=== PATIENT | female | born 1975 | race Asian ===

== ENCOUNTER 2020-04-03 15:37 | Emergency (ER) | payer OTHER ==
[~2020-04-03] VITALS: Ht 157.5 cm; Wt 68.0 kg
[~2020-04-03 15:37] MED LIST: BISA-42 PO; CEFT1FRO2 IV; DOCU-109 PO; Hydrocodone/Acetaminophen PO; NAPR-514 PO; OXYC1TAB15 PO; POTA20TA4 PO
[2020-04-03] MEDS ORDERED: KETOROLAC 15 MG/ML VIAL. IVP ONE (18:30)
[2020-04-03] MEDS ORDERED: ACETAMINOPHEN 500 MG TABLET PO ONE (18:30)
[2020-04-03] MEDS ORDERED: IV NORMAL SALINE 1000ML BAG 1,000 ML IV ONE (18:30)
--- NOTE | 2020-04-03 18:50 | PHYS DOC ---
Past Medical History Past Medical History: Kidney Stone Past Surgical History: No Surgical History Additional Past Surgical Histo: Kidney absess drained Smoking Status: Never Smoker Alcohol Use: None Drug Use: None General Adult EDM: Chief Complaint: FEVER HPI: HPI: Patient is a 44 year old female presents with report of abdominal discomfort with right flank pain and associated generalized malaise that is been ongoing for the past 2 days. Reports burning with urination. Denies . Patient denies trauma. Reports subjective fever and chills. Denies cough. Denies known sick contacts. Denies known exposure to COVID-19. Patient does report history of prior kidney stone. Review of Systems: Review of Systems: Constitutional: Reports subjective fever and chills Eyes: Denies redness or eye pain HENT: Denies nasal congestion or sore throat Respiratory: Denies cough or shortness of breath Cardiovascular: Denies chest pain or palpitations GI: Reports abdominal pain; denies nausea or vomiting : Reports dysuria; denies hematuria Musculoskeletal: Reports right flank pain/back pain; denies joint pain Integument: Denies rash or skin lesions Neurologic: Denies headache, focal weakness or sensory changes Complete systems were reviewed and found to be within normal limits, except as documented in this note. Current Medications: Current Medications Medications (Trade) Dose Ordered Sig/[facility] Start Time Stop Time Status Last Admin Dose Admin Acetaminophen (Tylenol) 500 mg 1X ONCE 04/03/20 18:30 04/03/20 18:31 DC Ketorolac Tromethamine (Toradol 15mg Vial) 15 mg 1X ONCE 04/03/20 18:30 04/03/20 18:31 DC Sodium Chloride 1,000 ml @ 1,000 mls/hr 1X ONCE 04/03/20 18:30 04/03/20 19:29 Allergies: Allergies: Allergies Coded Allergies Type Severity Reaction Last Updated Verified No Known Drug Allergies 04/26/15 No Physical Exam: PE: Constitutional: Well developed, well nourished, no acute distress, non-toxic appearance HENT: Normocephalic, atraumatic Eyes: Conjunctiva normal, no discharge Neck: Normal range of motion, supple Lungs & Thorax: No respiratory distress, equal chest rise and fall Abdomen: Soft, suprapubic tenderness Skin: Warm, dry, no erythema, no rash Back: No tenderness, right CVA tenderness Extremities: No tenderness, ROM intact, no edema Neurologic: Alert and oriented X 3, no focal deficits noted Psychologic: Affect normal, judgment normal Current Patient Data: Vital Signs: Vital Signs Date Time Temp Pulse Resp B/P (MAP) Pulse Ox O2 Delivery O2 Flow Rate FiO2 04/03/20 18:24 102.8 96 16 103/57 (72) 98 Room Air 102.8 EKG: EKG: [] Radiology/Procedures: Radiology/Procedures: PROCEDURE: CT ABDOMEN PELVIS WO CONTRAST INDICATION: Reason: right flank pain / Spl. Instructions: / History: COMPARISON: March 2015 TECHNIQUE: Axial CT images obtained through the abdomen and pelvis without contrast. Limited assessment of solid organ structures and vasculature secondary to lack of intravenous contrast.. One or more of the following individualized dose reduction techniques were utilized for this examination: 1. Automated exposure control; 2. Adjustment of the mA and/or kV according to patient size; 3. Use of iterative reconstruction technique. FINDINGS: Scattered calcific atherosclerosis. No intrahepatic bile duct dilation. No peripancreatic fluid collection. Spleen unremarkable. Multiple bilateral nonobstructive renal stones. Right sided hydronephrosis and hydroureter with perinephric edema. There are several calcifications at the right distal ureter with the largest at the right ureterovesicular junction measuring 5 mm. Multiple low-density lesions within the right kidney again seen but better evaluated on prior postcontrast exam. Urinary bladder partially distended. Uterus visualized. Colonic diverticulosis. No periappendiceal inflammatory changes. There is debris and air within the appendix. Small fat-containing helical hernia. Degenerative changes of the spine. IMPRESSION: * Right-sided hydronephrosis and hydroureter with distal ureter stones. Multiple additional nonobstructing renal stones. * Multiple low-density renal lesions not well characterized on noncontrast exam. Electronically signed by: Ronald Mason MD (04/03/2020 7:49 PM) [id number] Course & Med Decision Making: Course & Med Decision Making Pertinent Labs and Imaging studies reviewed. (See chart for details) Patient presents with lower abdominal discomfort with radiation to flank and subjective fever and chills x2 days. Reports history of prior kidney stones. Febrile upon arrival. Fever addressed. Pain addressed. IV fluid hydration given. Labs obtained and posted to chart. UA with signs of infection. Hypokalemia noted. Empiric antibiotic provided. Symptomatic Pyridium also given. Hypokalemia addressed. CT abdomen/pelvis with signs of obstructing calculi which are near UVJ. Flomax provided. Patient stable for discharge with outpatient follow-up with PCP. Discussed findings and plan with patient and family, who acknowledge understanding and agreement. Karen Disclaimer: Karen Disclaimer: This electronic medical record was generated, in whole or in part, using a voice recognition dictation system. Departure Departure Impression: Primary Impression: Kidney stone Additional Impressions: Pyelonephritis Hypokalemia Disposition: HOME, SELF-CARE Condition: STABLE Referrals: NO PCP (PCP) Patient Instructions: Diet for Kidney Stones, Hypokalemia, Kidney Stones, [id number], Potassium Content of Foods, Pyelonephritis, Adult, [id number] Additional Instructions: Strain urine to evaluate for passage of kidney stones. If symptoms persist or worsen please present to facility such as or [facility] as we currently do not have Urology coverage at [facility]. Scripts Hydrocodone/Apap 5-325 (NORCO 5-325 TABLET) 1 Each Tablet 0.5-1 TAB PO PRN Q6HRS PRN for PAIN, #10 TAB 0 Refills Prov: CINDI HARDEN DO 04/03/20 Cephalexin (KEFLEX) 500 Mg Capsule 500 MG PO TID for 7 Days, #21 CAP Prov: CINDI HARDEN DO 04/03/20 Ondansetron (ONDANSETRON ODT) 4 Mg Tab.rapdis 1 TAB PO PRN Q6-8HRS PRN for NAUSEA, #16 TAB Prov: CINDI HARDEN DO 04/03/20 Tamsulosin Hcl (FLOMAX) 0.4 Mg Cap.er.24h 1 CAP PO DAILY for 7 Days, #7 CAP Prov: CINDI HARDEN DO 04/03/20 Justicifation of Admission Dx: Justifications for Admission: Justification of Admission Dx: N/A CINDI HARDEN DO Apr 03, 2020 18:50
[2020-04-03 18:51] LABS: BASO # 0.1 x10^3/uL (0.0-0.2); BASO % 0 % (0-3); EOS % 0 % (0-3); HEMOGLOBIN 12.1 g/dL (12.0-15.5); LYMPH # 0.9 x10^3/uL (1.0-4.8); LYMPH % 6 % (24-48); MEAN CORPUSCULAR HEMOGLOBIN 25 pg (25-35); MEAN CORPUSCULAR HGB CONC 33 g/dL (31-37); MEAN CORPUSCULAR VOLUME 76 fL (79-100); MONO # 1.3 x10^3/uL (0.0-1.1); MONO % 9 % (0-9); NEUT # 12.7 x10^3/uL (1.8-7.7); NEUT % 85 % (31-73); PLATELET COUNT 265 x10^3/uL (140-400); RED BLOOD COUNT 4.85 x10^6/uL (3.50-5.40); RED CELL DISTRIBUTION WIDTH 12.8 % (11.5-14.5); WHITE BLOOD COUNT 15.1 x10^3/uL (4.0-11.0)
[2020-04-03 18:52] LABS: BILIRUBIN,URINE NEGATIVE (NEG); CLARITY,URINE CLOUDY; COLOR,URINE YELLOW; NITRITE,URINE NEGATIVE (NEG); PH,URINE 6.5 (<5.0-8.0); PROTEIN,URINE 30 mg/dL (NEG-TRACE)
[2020-04-03 18:59] LABS: CALCIUM 8.7 mg/dL (8.5-10.1); CREATININE 0.7 mg/dL (0.6-1.0); GFR 91.3; POTASSIUM 3.2 mmol/L (3.5-5.1)
[2020-04-03 19:04] LABS: ALBUMIN 3.4 g/dL (3.4-5.0); ALBUMIN/GLOBULIN RATIO 0.8 (1.0-1.7); TOTAL BILIRUBIN 0.9 mg/dL (0.2-1.0); TOTAL PROTEIN 7.6 g/dL (6.4-8.2)
[2020-04-03 19:10] LABS: BACTERIA,URINE MANY /HPF (0-FEW); SQUAMOUS EPITHELIAL CELL,UR MOD /LPF; WBC,URINE >40 /HPF (0-4)
[2020-04-03 19:13] LABS: RBC,URINE 20-40 /HPF (0-2)
[2020-04-03 19:14] LABS: U PREG PATIENT NEGATIVE (NEG)
[2020-04-03 19:20] LABS: % BANDS 8 % (0-9); % EOS 1 % (0-5); % LYMPHS 12 % (24-48); % MONOS 3 % (0-10); % SEGS 76 % (35-66); PLT ESTIMATE ADEQUATE (ADEQUATE)
--- NOTE | 2020-04-03 19:52 | RAD ---
INDICATION: Reason: right flank pain / Spl. Instructions: / History: COMPARISON: March 2015 TECHNIQUE: Axial CT images obtained through the abdomen and pelvis without contrast. Limited assessment of solid organ structures and vasculature secondary to lack of intravenous contrast.. One or more of the following individualized dose reduction techniques were utilized for this examination: 1. Automated exposure control; 2. Adjustment of the mA and/or kV according to patient size; 3. Use of iterative reconstruction technique. FINDINGS: Scattered calcific atherosclerosis. No intrahepatic bile duct dilation. No peripancreatic fluid collection. Spleen unremarkable. Multiple bilateral nonobstructive renal stones. Right sided hydronephrosis and hydroureter with perinephric edema. There are several calcifications at the right distal ureter with the largest at the right ureterovesicular junction measuring 5 mm. Multiple low-density lesions within the right kidney again seen but better evaluated on prior postcontrast exam. Urinary bladder partially distended. Uterus visualized. Colonic diverticulosis. No periappendiceal inflammatory changes. There is debris and air within the appendix. Small fat-containing helical hernia. Degenerative changes of the spine. IMPRESSION: * Right-sided hydronephrosis and hydroureter with distal ureter stones. Multiple additional nonobstructing renal stones. * Multiple low-density renal lesions not well characterized on noncontrast exam. Electronically signed by: Ronald Mason MD (04/03/2020 7:49 PM) [id number]
[2020-04-03] MEDS ORDERED: PHENAZOPYRIDINE 200 MG TABLET. PO ONE (20:00)
[2020-04-03] MEDS ORDERED: cefTRIAXone IV Push 1 GM VIAL. IVP ONE (20:00)
[2020-04-03] MEDS ORDERED: POTASSIUM CHLORIDE 20 MEQ TABLET.ER. PO ONE (20:00)
[2020-04-03] MEDS ORDERED: CEPH-264 PO (20:03)
[2020-04-03] MEDS ORDERED: TAMS0.4C97 PO (20:03)
[2020-04-03] MEDS ORDERED: ONDA4TAB12 PO (20:03)
[2020-04-03 20:13] VITALS: BP 98/57
[2020-04-03] MEDS ORDERED: TAMSULOSIN 0.4 MG CAP.ER.24H. PO ONE (20:15)
[2020-04-03] MEDS ORDERED: ONDANSETRON PF 4 MG/2 ML VIAL. ONE (20:32)
[2020-04-03] MEDS ORDERED: HYDR-3164 PO (20:39)
[2020-04-03] MEDS ORDERED: ONDANSETRON PF 4 MG/2 ML VIAL. IVP ONE (20:45)
== END 2020-04-03 21:18 | disposition home or self-care (01) ==
LOC: ER 15:37
DX: N13.2 Hydronephrosis with renal and ureteral calculous obstruction (principal); N12 Tubulo-interstitial nephritis, not specified as acute or chronic; E87.6 Hypokalemia
CPT/HCPCS: 36415; 74176; 80053; 81001; 81025; 83605; 83690; 85007; 85025; 87086; 96361; 96374; 96375; 99284; J0696; J1885; J2405; J7030; 87077; 87186

== ENCOUNTER → 2021-04-17 | Outpatient (CLI) | payer OTHER ==
[~2021-04-17] MED LIST changes: +CEPH-264 PO; +HYDR-3164 PO; +ONDA4TAB12 PO; +TAMS0.4C97 PO
--- NOTE | 2021-04-17 15:38 | KCIC ---
EXAM: Pelvic sonogram. HISTORY: Pelvic pain. TECHNIQUE: Transabdominal sonographic imaging of the pelvis was performed. COMPARISON: None. FINDINGS: The uterus measures 10.0 x 7.4 x 5.7 cm. The uterine parenchyma is slightly heterogeneous. The endometrial stripe measures 5.3 mm in thickness. The ovaries are normal in size and demonstrate n ormal blood flow. There is no pelvic free fluid. IMPRESSION: 1. Heterogeneous uterus. No discrete lesion such as a fibroid is seen. 2. Otherwise, unremarkable pelvic sonogram. Electronically signed by: Tracey Guevara MD (04/17/2021 3:35 PM) [id number]
== END ==
LOC: KCIC US 14:50
PROVIDERS: ATTEND Internal Medicine
DX: N85.8 Other specified noninflammatory disorders of uterus (principal); D25.9 Leiomyoma of uterus, unspecified; R10.2 Pelvic and perineal pain
CPT/HCPCS: 76856